=== PATIENT | female | born 1985 | race Caucasian/White ===

== ENCOUNTER 2025-07-06 00:25 | Emergency (ER) | payer SELFPAY ==
[~2025-07-06] VITALS: Ht 165.1 cm; Wt 82.0 kg
[2025-07-06 00:27] VITALS: BP 119/75; PULSE 82; RESP 16; TEMP 97.9; O2SAT 98
== END 2025-07-06 00:50 | disposition home or self-care (01) ==
LOC: ER 00:25
DX: F10.129 Alcohol abuse with intoxication, unspecified (principal); I49.3 Ventricular premature depolarization; Y90.9 Presence of alcohol in blood, level not specified
CPT/HCPCS: 99283